=== PATIENT | male | born 1985 | race Caucasian/White ===

== ENCOUNTER 2020-12-14 06:06 | Inpatient (IN) ==
[2020-12-14] MEDS ORDERED: SODIUM CHLORIDE 0.9% 1000ML 1,000 ML IV STA (07:02)
[2020-12-14 07:28] LABS: Basophils # (auto) 0.02 K/uL (0-0.2); Basophils % (auto) 0.1 %; Eosinophils # (auto) 0.02 K/uL (0-0.5); Eosinophils % (auto) 0.1 %; Hematocrit (blood only) 44.7 % (42-52); Hemoglobin 16.1 g/dL (14.0-18.0); Immature Granulocytes # (auto) 0.05 K/uL (0.00-0.02); Immature Granulocytes % (auto) 0.3 %; Lymphocytes # (auto) 1.06 K/uL (1.2-3.4); Lymphocytes % (auto) 6.8 %; Mean Corpuscular Hemoglobin 30.9 pg (25-34); Mean Corpuscular Volume 85.8 fL (80-100); Monocytes # (auto) 1.73 K/uL (0.11-0.59); Monocytes % (auto) 11.1 %; Neutrophils # (auto) 12.66 K/uL (1.4-6.5); Neutrophils % (auto) 81.6 %; Platelet Count 211 K/uL (130-400); RDW Coefficient of Variation 13.4 % (11.5-14.5); RDW Standard Deviation 42.2 fL (36.4-46.3); Red Blood Count 5.21 M/uL (4.7-6.1); White Blood Count 15.54 K/uL (4.8-10.8)
--- NOTE | 2020-12-14 07:28 | Emergency Department Note ---
ED Visit Note I contributed to the care of this patient under the supervision of Dr. Mead . Resident Activity Tracking Resident Involvement: Resident Care Provided Care Provided: Adult ED
--- NOTE | 2020-12-14 07:44 | Emergency Department Note ---
History of Present Illness General Chief Complaint: Illness Stated Complaint: STOMACH PAIN,CHEST,THROAT PAIN Time Seen by Provider: 12/14/20 06:47 History of Present Illness Provider Complaint: abdominal pain Onset (ago): 2 hour(s) Pain Consistency: constant Location: diffuse Severity: moderate Maximum Pain Intensity: 6 Current Pain Intensity: 5 Quality: + aching Relieved By: + nothing Exacerbated By: + nothing Context: no foreign travel, no possible food poisoning, no recent antibiotic use and no recent surgery/procedure Associated Symptoms: + nausea, + vomiting, + chills and + constipation; no diarrhea, no fever, no dysuria, no hematemesis, no hematochezia, no melena, no hematuria, no anorexia, no syncope, no headache, no neck pain, no back pain, no chest pain and no breathing difficulty Home Medications Medication Instructions Recorded Confirmed Type ibuprofen 200 mg PO Q6H PRN 12/14/20 12/14/20 History psyllium [Metamucil] 1 packet PO TID 12/14/20 12/14/20 History Allergies Allergy/AdvReac Type Severity Reaction Status Date / Time Penicillins Allergy Hives Unverified 12/14/20 09:59 Past Med/Surg History Medical History (Updated 12/14/20 @ 15:36 by Toney Mead) Excessive consumption of ethanol Morbid obesity with BMI of 40.0-44.9, adult Transient hypertension Surgical History No pertinent past surgical history Family History Other Family history non-contributory Social History (Updated 12/14/20 @ 11:01 by Jj Gomes PA-C) Smoking Status: Heavy tobacco smoker Tobacco Type: Smokeless Tobacco (Dip or Chew) Second Hand Exposure: No; Do You Dip or Chew Tobacco: Yes; Tobacco Cessation Education Requested by Patient: No Hx Alcohol Use: Yes Alcohol type: hard liquor Hx Substance Use: No Preferred Language: Tamazight Communication Ability: Effective Hearing Ability: Normal 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 Required: No Beliefs That Will Affect Care: Yarsani marital status: marital status details: 2 children at home Current Living Situation: Spouse current occupational status: employed 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 [employer] How many Children do You have Comment: 2 Other Information That Helps Us Care for You: No Feels Safe at Home: Yes Safety Concerns: Feels Safe At This Time during the past year weight has: remained stable Dental Care, Regularly: Yes Assistive Devices: None Review of Systems A total of 10 systems reviewed and were otherwise negative Physical Exam Vital Signs: Vital Signs - 24 hr 12/14/20 06:10 12/14/20 08:07 12/14/20 09:11 Temperature 36.2 C L Temperature Source Temporal Artery Sc an Pulse Rate 109 H Pulse Rate [Finger ] 90 93 H Respiratory Rate 18 18 20 Respiratory Effort / Characteristics Non-Labored Sponta neous Respiratory Depth Normal Blood Pressure 163/101 H Blood Pressure [Ri ght Arm] 153/90 H 183/95 H Blood Pressure Aye n 121 Blood Pressure Aye n [Right Arm] 111 124 Pulse Oximetry 99 96 96 Oxygen Delivery Me thod Room Air Room Air Room Air Sepsis Recent Feve r Within 48 Hours No Sepsis New/Unexpla ined Change in Men dilip Status N/A Sepsis Action Take n by Nursing No Action Required 12/14/20 10:18 Temperature Temperature Source Pulse Rate Pulse Rate [Finger ] 94 H Respiratory Rate 22 Respiratory Effort / Characteristics Respiratory Depth Blood Pressure Blood Pressure [Ri ght Arm] 168/97 H Blood Pressure Aye n Blood Pressure Aye n [Right Arm] 120 Pulse Oximetry 97 Oxygen Delivery Me thod Room Air Sepsis Recent Feve r Within 48 Hours Sepsis New/Unexpla ined Change in Men dilip Status Sepsis Action Take n by Nursing Physical Exam: Physical Exam GENERAL: He is oriented to person, place, and time. He appears well-developed and well-nourished. He does not appear distressed. HENT: Exam performed. - Head: Normocephalic and atraumatic. - Right Ear: External ear normal. No mastoid tenderness. - Left Ear: External ear normal. No mastoid tenderness. - Mouth/Throat: The oropharynx is clear and moist. No trismus in the jaw. No dental abscesses or uvula swelling. No oropharyngeal exudate or tonsillar abscesses. EYES: Conjunctivae and EOM are normal. Pupils are equal, round, and reactive to light. Right eye exhibits no discharge. Left eye exhibits no discharge. No scleral icterus. NECK: Normal range of motion. Neck supple. No JVD present. No spinous process te nderness present. No carotid bruit present. No rigidity. No tracheal deviation and normal range of motion present. No Brudzinski's sign and no Kernig's sign noted. CV: Normal rate, regular rhythm, normal heart sounds and intact distal pulses. There is no peripheral edema. Palpable radial pulses bue. PULM/CHEST: Effort normal and breath sounds normal. No respiratory distress. No stridor. He has no wheezes. He has no rales. - Chest Wall: He exhibits no tenderness. ABD: The abdomen is soft. Bowel sounds are normal. He has no distension. No mass is present. There is no tenderness. There is no rebound, no guarding, no Ramirez's sign and no tenderness at McBurney's point. Rovsig negative. MUSC/SKEL: Normal range of motion. There is no peripheral edema, tenderness or deformity. LYMPH: No cervical adenopathy. NEURO: He is alert and oriented to person, place, and time. He has normal strength. No cranial nerve deficit or sensory deficit. Coordination and gait normal. GCS eye subscore is 4. GCS verbal subscore is 5. GCS motor subscore is 6. Cerebellar tests wnl. SKIN: Skin is warm and dry. He is not diaphoretic. PSYCH: He has a normal mood and affect. Behavior is normal. Judgment and thought content normal. Course Course 0647: The patient was evaluated in room C7. A complete history and physical exam was performed Cardiac monitoring: An order was placed for continuous cardiac monitoring. The monitor shows a rate of 110 with sinus tachycardia rhythm 0930: Vital signs stable. Patient's labs are leukocytosis 15.5 as well as an elevated [place]ase [place] 3959. Patient CT does show pancreatitis. Patient will be admitted to the [facility] hospitalist team Dr. Schilling has been notified. Administered Medications Thiamine HCl 100 mg/ Syringe 10 mls @ 2 mls/min IV QAM [facility] Stop: 01/13/21 13:14 Last Admin: 12/14/20 14:00 Dose: 2 mls/min Documented by: [id number] Folic Acid 1 mg/ Syringe 10 mls @ 5 mls/min IV QAM [facility] Stop: 01/13/21 13:14 Last Admin: 12/14/20 14:00 Dose: 5 mls/min Documented by: [id number] Dextrose/Sodium Chloride (D5w And Nss) 1,000 mls @ 150 mls/hr IV .Q6H40M [facility] Stop: 01/13/21 14:29 Last Admin: 12/14/20 14:43 Dose: 150 mls/hr Documented by: [id number] Insulin Aspart (Insulin Aspart 100 Units/Ml 3 Ml Pen) 0 units SC ACHS [facility] Stop: 01/13/21 13:14 Last Admin: 12/14/20 13:35 Dose: Not Given Documented by: [id number] Discontinued Medications Heparin Sodium (Porcine) (Heparin Sod 5,000 Unit/0.5 Ml Vial) 7,500 units SQ Q8 [facility] Stop: 01/13/21 13:59 Last Admin: 12/14/20 14:04 Dose: 7,500 units Documented by: [id number] Hydromorphone HCl (Hydromorphone Inj 0.5 Mg/0.5 Ml Syr) 0.5 mg IV NOW STA Stop: 12/14/20 11:36 Last Admin: 12/14/20 11:40 Dose: 0.5 mg Documented by: [id number] Sodium Chloride (Nss 1000ml) 1,000 mls @ 999 mls/hr IV .Q1H1M STA Stop: 12/14/20 08:02 Last Infusion: 12/14/20 08:08 Dose: 0 mls/hr Documented by: [id number] Admin: 12/14/20 07:13 Dose: 999 mls/hr Documented by: [id number] Lactated Ringer's (Lr) 1,000 mls @ 200 mls/hr IV .Q5H [facility] Stop: 01/13/21 08:29 Last Infusion: 12/14/20 14:35 Dose: 0 mls/hr Documented by: [id number] Admin: 12/14/20 13:32 Dose: 200 mls/hr Documented by: [id number] Infusion: 12/14/20 13:24 Dose: 0 mls/hr Documented by: [id number] Admin: 12/14/20 08:24 Dose: 200 mls/hr Documented by: [id number] Ioversol (Ioversol 100ml) 94 ml IV ONCE ONE Stop: 12/14/20 08:08 Last Admin: 12/14/20 08:07 Dose: 94 ml Documented by: [id number] Ondansetron HCl (Ondansetron Inj 2 Mg/Ml 2 Ml Vial) 4 mg IV NOW STA Stop: 12/14/20 11:37 Last Admin: 12/14/20 11:40 Dose: 4 mg Documented by: [id number] Medical Decision Making Laboratory Data Result diagrams: 12/14/20 07:13 12/14/20 13:07 Lab Results 12/14/20 12/14/20 12/14/20 Range/Units 07:13 07:13 07:13 WBC 15.54 H (4.8-10.8) K/uL RBC 5.21 (4.7-6.1) M/uL Hgb 16.1 (14.0-18.0) g/dL Hct 44.7 (42-52) % MCV 85.8 (80-100) fL MCH 30.9 (25-34) pg MCHC 36.0 (32-36) g/dL RDW Std Deviation 42.2 (36.4-46.3) fL RDW Coeff of Nolberto 13.4 (11.5-14.5) % Plt Count 211 (130-400) K/uL MPV 10.0 (7.4-10.4) fL Immature Gran % (Auto) 0.3 % Neut % (Auto) 81.6 % Lymph % (Auto) 6.8 % [place] % (Auto) 11.1 % Eos % (Auto) 0.1 % Baso % (Auto) 0.1 % Neut # (Auto) 12.66 H (1.4-6.5) K/uL Lymph # (Auto) 1.06 L (1.2-3.4) K/uL [place] # (Auto) 1.73 H (0.11-0.59) K/uL Eos # (Auto) 0.02 (0-0.5) K/uL Baso # (Auto) 0.02 (0-0.2) K/uL Immature Gran # (Auto) 0.05 H (0.00-0.02) K/uL Sodium 135 L (136-145) mmol/L Potassium 3.7 (3.5-5.1) mmol/L Chloride 102 (98-107) mmol/L Carbon Dioxide 26 (21-32) mmol/L Anion Gap 7.0 (3-11) BUN 5 L (7-18) mg/dl Creatinine 0.89 (0.6-1.4) mg/dl Est Cr Clr Drug Dosing 162.4 ml/min Est GFR ( Amer) 128.4 Est GFR (Non-Af Amer) 110.8 BUN/Creatinine Ratio 5.9 L (10-20) Glucose 162 H (70-99) mg/dl Calcium 9.5 (8.5-10.1) mg/dl Total Bilirubin 1.1 H (0.2-1) mg/dl AST 16 (15-37) U/L ALT 33 (12-78) U/L Alkaline Phosphatase 87 (45-117) U/L Total Protein 7.7 (6.4-8.2) gm/dl Albumin 3.1 L (3.4-5.0) gm/dl Globulin 4.6 H (2.5-4.0) gm/dl Albumin/Globulin Ratio 0.7 L (0.9-2) Triglycerides 849 H (0-150) mg/dl Cholesterol 374 H (0-200) mg/dl LDL Cholesterol, Calc mg/dl VLDL Cholesterol, Calc mg/dl HDL Cholesterol 42 mg/dl Cholesterol/HDL Ratio 9 Lipase 3959 H (73-393) U/L COVID-19 Eval Order SARS-CoV-2 (PCR) (Negative) Influenza Type A (PCR) (Neg) Influenza Type B (PCR) (Neg) RSV (RT-PCR) (Neg) 12/14/20 12/14/20 Range/Units 09:10 09:10 WBC (4.8-10.8) K/uL RBC (4.7-6.1) M/uL Hgb (14.0-18.0) g/dL Hct (42-52) % MCV (80-100) fL MCH (25-34) pg MCHC (32-36) g/dL RDW Std Deviation (36.4-46.3) fL RDW Coeff of Nolberto (11.5-14.5) % Plt Count (130-400) K/uL MPV (7.4-10.4) fL Immature Gran % (Auto) % Neut % (Auto) % Lymph % (Auto) % [place] % (Auto) % Eos % (Auto) % Baso % (Auto) % Neut # (Auto) (1.4-6.5) K/uL Lymph # (Auto) (1.2-3.4) K/uL [place] # (Auto) (0.11-0.59) K/uL Eos # (Auto) (0-0.5) K/uL Baso # (Auto) (0-0.2) K/uL Immature Gran # (Auto) (0.00-0.02) K/uL Sodium (136-145) mmol/L Potassium (3.5-5.1) mmol/L Chloride (98-107) mmol/L Carbon Dioxide (21-32) mmol/L Anion Gap (3-11) BUN (7-18) mg/dl Creatinine (0.6-1.4) mg/dl Est Cr Clr Drug Dosing ml/min Est GFR ( Amer) Est GFR (Non-Af Amer) BUN/Creatinine Ratio (10-20) Glucose (70-99) mg/dl Calcium (8.5-10.1) mg/dl Total Bilirubin (0.2-1) mg/dl AST (15-37) U/L ALT (12-78) U/L Alkaline Phosphatase (45-117) U/L Total Protein (6.4-8.2) gm/dl Albumin (3.4-5.0) gm/dl Globulin (2.5-4.0) gm/dl Albumin/Globulin Ratio (0.9-2) Triglycerides (0-150) mg/dl Cholesterol (0-200) mg/dl LDL Cholesterol, Calc mg/dl VLDL Cholesterol, Calc mg/dl HDL Cholesterol mg/dl Cholesterol/HDL Ratio Lipase (73-393) U/L COVID-19 Eval Order CovFluRsv at [facility] SARS-CoV-2 (PCR) NEGATIVE (Negative) Influenza Type A (PCR) Negative (Neg) Influenza Type B (PCR) Negative (Neg) RSV (RT-PCR) Negative (Neg) Imaging Data Radiologist's Impression: Abdomen/Pelvis CT 12/14/20 07:34 CT SCAN OF THE ABDOMEN AND PELVIS WITH IV CONTRAST CLINICAL HISTORY: Vomiting. Lower abdominal pain. Constipation. COMPARISON STUDY: No priors. TECHNIQUE: Following the IV administration of 94 cc of Optiray 320, CT scan of the abdomen and pelvis is performed from the lung bases to the proximal femora. Images are reviewed in the axial, sagittal, and coronal planes. IV contrast was administered without complication. A dose lowering technique was utilized adhering to the principles of ALARA. CT DOSE: 1680.54 mGy.cm FINDINGS: Lung bases: The heart is top normal in size and without pericardial effusion. The coronary arteries are densely calcified. The lung bases are clear noting dependent atelectasis. There is a small hiatal hernia. Liver: The contrast-enhanced liver is enlarged, measuring 21.2 cm in length. The liver demonstrates diffusely diminished attenuation consistent with severe he patic steatosis. Fatty sparing is seen adjacent to gallbladder fossa. There is no intrahepatic biliary ductal dilatation. The hepatic veins and portal veins are patent. Gallbladder: Unremarkable. Spleen: Normal in size and attenuation. Pancreas: The pancreatic body and tail appear edematous. There is significant peripancreatic stranding and fluid, and the appearance is consistent with severe acute pancreatitis. The gland enhances homogeneously. The the pancreatic duct is normal in caliber. No organized peripancreatic fluid collection is identified. The splenic vein is patent. Wall thickening of the adjacent stomach is likely reactive. Adrenal glands: Unremarkable. Kidneys: The contrast enhanced kidneys are normal in size and without hydronephrosis. The kidneys enhance symmetrically. A 2.7 cm calcification containing cyst or calyceal diverticulum in the right upper pole measures 2.7 cm. Abdominal vasculature: The abdominal aorta is normal in course and caliber. Bowel: There is no bowel obstruction. Moderate fecal retention is seen in the right colon. The appendix is well-visualized and normal. Peritoneum: No intraperitoneal free air is seen. There is peripancreatic fluid, with fluid seen tracking inferiorly within the left paracolic gutter. There is a fat-containing umbilical hernia. Lymphadenopathy: There are numerous mildly enlarged upper abdominal lymph nodes, which may be reactive or secondary to chronic liver disease. A portacaval node measures 1.6 cm short axis. Nodes in the nanda hepatis measure up to 1.2 cm in short axis. Pelvic viscera: The bladder, prostate, and seminal vesicles are normal as visualized. Skeletal structures: No lytic or blastic lesions are seen. There are bilateral pars defects at L5. Degenerative change and mild fragmentation is seen at the pubic symphysis. IMPRESSION: 1. Findings are consistent with severe acute pancreatitis. 2. The gland enhances homogeneously and no organized peripancreatic fluid collection is identified. 3. Hepatomegaly and severe hepatic steatosis. 4. The coronary arteries are densely calcified. This is advanced for age, and nonemergent cardiology follow-up is recommended. 5. Additional findings as above. ACT 112: Positive. There are findings on this exam that require communication between the performing entity and the patient following Patient Test Result Information Act ([place] Act 112) guidelines. Electronically signed by: Jj Kwan M.D. 12/14/2020 8:31 AM MDM Narrative Vital signs stable. Patient's labs are leukocytosis 15.5 as well as an [place] 3959. Patient CT does show pancreatitis. Patient will be admitted to the [facility] Hospitalist team Dr. Schilling has been notified. Impression & Plan Acute pancreatitis Discharge Plan Visit Data Chief Complaint: Illness Stated Complaint: STOMACH PAIN,CHEST,THROAT PAIN ED Provider: Toney Mead ED Midlevel Provider: Ron Lauren Discharge Problem: Acute pancreatitis Patient Disposition: Admitted As Inpatient Discharge Instructions Interventions: ED Discharge Assessment Last Done: 12/14/20 12:35 Discharge Problem: Acute pancreatitis Qualifiers: Pancreatitis type: unspecified pancreatitis type Acute pancreatitis complication: unspecified Qualified Code(s): K85.90 - Acute pancreatitis without necrosis or infection, unspecified
[2020-12-14 07:45] LABS: Albumin Level 3.1 gm/dl (3.4-5.0); BUN Creatinine Ratio 5.9 (10-20); Calcium 9.5 mg/dl (8.5-10.1); Creatinine Clr Calc Pharmacy 162.4 ml/min; Est GFR (African American) 128.4; Est GFR (Non-African American) 110.8; Potassium 3.7 mmol/L (3.5-5.1)
[2020-12-14 07:48] LABS: Albumin Globulin Ratio 0.7 (0.9-2); Bilirubin,Total 1.1 mg/dl (0.2-1); Globulin 4.6 gm/dl (2.5-4.0); Total Protein 7.7 gm/dl (6.4-8.2)
[2020-12-14] MEDS ORDERED: OPTIRAY 320 100ml IV ONE (08:07)
[2020-12-14] MEDS: LACTATED RINGER'S 1,000 ML IV SCH ×2 (08:24→13:32)
--- NOTE | 2020-12-14 08:32 | CT Scan Report ---
CT SCAN OF THE ABDOMEN AND PELVIS WITH IV CONTRAST CLINICAL HISTORY: Vomiting. Lower abdominal pain. Constipation. COMPARISON STUDY: No priors. TECHNIQUE: Following the IV administration of 94 cc of Optiray 320, CT scan of the abdomen and pelvi s is performed from the lung bases to the proximal femora. Images are reviewed in the axial, sagittal , and coronal planes. IV contrast was administered without complication. A dose lowering technique wa s utilized adhering to the principles of ALARA. CT DOSE: 1680.54 mGy.cm FINDINGS: Lung bases: The heart is top normal in size and without pericardial effusion. The coronary arteries a re densely calcified. The lung bases are clear noting dependent atelectasis. There is a small hiatal hernia. Liver: The contrast-enhanced liver is enlarged, measuring 21.2 cm in length. The liver demonstrates d iffusely diminished attenuation consistent with severe hepatic steatosis. Fatty sparing is seen adjac ent to gallbladder fossa. There is no intrahepatic biliary ductal dilatation. The hepatic veins and p ortal veins are patent. Gallbladder: Unremarkable. Spleen: Normal in size and attenuation. Pancreas: The pancreatic body and tail appear edematous. There is significant peripancreatic strandin g and fluid, and the appearance is consistent with severe acute pancreatitis. The gland enhances homo geneously. The the pancreatic duct is normal in caliber. No organized peripancreatic fluid collection is identified. The splenic vein is patent. Wall thickening of the adjacent stomach is likely reactiv e. Adrenal glands: Unremarkable. Kidneys: The contrast enhanced kidneys are normal in size and without hydronephrosis. The kidneys enh ance symmetrically. A 2.7 cm calcification containing cyst or calyceal diverticulum in the right uppe r pole measures 2.7 cm. Abdominal vasculature: The abdominal aorta is normal in course and caliber. Bowel: There is no bowel obstruction. Moderate fecal retention is seen in the right colon. The append ix is well-visualized and normal. Peritoneum: No intraperitoneal free air is seen. There is peripancreatic fluid, with fluid seen track ing inferiorly within the left paracolic gutter. There is a fat-containing umbilical hernia. Lymphadenopathy: There are numerous mildly enlarged upper abdominal lymph nodes, which may be reactiv e or secondary to chronic liver disease. A portacaval node measures 1.6 cm short axis. Nodes in the p parrish hepatis measure up to 1.2 cm in short axis. Pelvic viscera: The bladder, prostate, and seminal vesicles are normal as visualized. Skeletal structures: No lytic or blastic lesions are seen. There are bilateral pars defects at L5. De generative change and mild fragmentation is seen at the pubic symphysis. IMPRESSION: 1. Findings are consistent with severe acute pancreatitis. 2. The gland enhances homogeneously and no organized peripancreatic fluid collection is identified. 3. Hepatomegaly and severe hepatic steatosis. 4. The coronary arteries are densely calcified. This is advanced for age, and nonemergent cardiology follow-up is recommended. 5. Additional findings as above. ACT 112: Positive. There are findings on this exam that require communication between the performing entity and the patient following Patient Test Result Information Act ([place] Act 112) guidelines. Electronically signed by: Jj Kwan M.D. 12/14/2020 8:31 AM
--- NOTE | 2020-12-14 09:28 | History & Physical Report ---
Date of Service December 14, 2020 Assessment & Plan (1) Acute pancreatitis: Does not appear to be due to infection Received 1 L of normal saline in the emergency department followed by lactated Ringer's at 200 mL/h We will continue lactated Ringer's at 200 mL/h BMP every 6 hours Repeat CMP in the morning [facility] No indication for antibiotics at this time No hypercalcemia Follow hypertriglyceridemia (2) Hypertriglyceridemia: Unclear if this is causational to acute pancreatitis Follow serial lab Continue with fluid resuscitation (3) Hyperglycemia: May be secondary to acute pancreatitis No history of diabetes mellitus in the family We will begin sliding scale insulin with NovoLog. Check BSG ACHS Clear liquid diet at this time Check a hemoglobin A1c in the morning Patient with morbid obesity with a BMI of 41.5 kg/m (4) Hypertension: Hypertension may be a result of acute pain from pancreatitis We will treat with fluid resuscitation and Dilaudid 0.5 mg IV every 4 hours as needed for pain Patient states that he has had transient hypertension as an outpatient but he currently is not on any antihypertensives We will not begin any antihypertensives at this time but will follow pain control and SBP (5) Excessive consumption of ethanol: Discussed need for complete abstention Patient agreeable We will place patient on AWSS As needed lorazepam Thiamine daily Folic acid daily Multivitamin daily (6) Morbid obesity with BMI of 40.0-44.9, adult: Discussed need for weight loss Patient is working on that at home and is in a weight loss challenge at work Advised patient to discuss with family doctor for weight loss strategy (7) DVT prophylaxis: Heparin 7500 units SQ every 8 hours Ambulate as tolerated Please refer to Dr. Arcos's addendum for further corrections and additions. History of Present Illness Primary Care Provider: Robert Ordoñez MD Attending: Dr. 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 He has a past medical history including ethanol abuse, morbid obesity with a BMI of 41.5 kg/m, transient hypertension on no outpatient treatment, tobacco abuse. The patient states that he began having some abdominal pain 2 days ago. He repo rts that he does drink regularly and increase his alcohol consumption recently. He has never had a problem with withdrawal and has never had inpatient rehabilitation. He drove himself to the emergency department due to abdominal pain and was found to have acute pancreatitis by CT abdomen pelvis. He received 1 L of normal saline solution and then was started on 200 mL an hour of lactated Ringer's. He had one episode of vomiting 2 days ago. He had no food intake yesterday and has no nausea or vomiting. He has no shortness of breath other than with abdominal pain. He states that he does have difficulty taking a deep breath because of the pain. He has no recent diarrhea and has regular bowel movements that are formed. He has no hematemesis, hematochezia, melena, BRBPR. His blood pressure is elevated at 168/97 which may be secondary to pain. Patient does state that in the past he has been on antihypertensives but not regularly. He has no cardiac history other than this transient hypertension. He denies any family history of ACS or CAD. There is no history of diabetes or malignancy in his family as well. Patient does have elevated triglycerides and lipids. He is currently not being treated as an outpatient. Regarding constitutional symptoms, patient denies fever but did have chills and some sweats last night. He has no evidence of sepsis. He has no recent travel. He feels as though he may have had Covid in the past but was never tested. [facility] not [facility]. There is no one sick at home. The patient is and has 2 children aged 4 and 6. Until this admission, patient has been in his usual well state of health. Regarding the patient's weight, he states that he has had no recent weight loss or gain that was unintentional. He does acknowledge that ethanol intake contributes to his truncal obesity. He also states that he has made the decision to decrease his drinking and try and lose weight and is in fact involved in a weight loss challenge at work. The patient does not have a history of cigarette smoking abuse. He does however use smokeless tobacco and goes for approximately 2 cans/week. He has no other substance abuse or illicit drug use. Allergies Allergy/AdvReac Type Severity Reaction Status Date / Time Penicillins Allergy Hives Unverified 12/14/20 09:59 Home Medications Medication Instructions Recorded Confirmed Type ibuprofen 200 mg PO Q6H PRN 12/14/20 12/14/20 History psyllium [Metamucil] 1 packet PO TID 12/14/20 12/14/20 History Past Med/Surg History Medical History (Updated 12/14/20 @ 15:36 by Toney Mead) Excessive consumption of ethanol Morbid obesity with BMI of 40.0-44.9, adult Transient hypertension Surgical History No pertinent past surgical history Family History Other Family history non-contributory Social History (Updated 12/14/20 @ 11:01 by Jj Gomes PA-C) Smoking Status: Heavy tobacco smoker Tobacco Type: Smokeless Tobacco (Dip or Chew) Second Hand Exposure: No; Do You Dip or Chew Tobacco: Yes; Tobacco Cessation Education Requested by Patient: No Hx Alcohol Use: Yes Alcohol type: hard liquor Hx Substance Use: No Preferred Language: Mongolian Communication Ability: Effective Hearing Ability: Normal Career Guidance Counselor Required: No Beliefs That Will Affect Care: Buddhist marital status: marital status details: 2 children at home Current Living Situation: Spouse current occupational status: employed 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 [employer] How many Children do You have Comment: 2 Other Information That Helps Us Care for You: No Feels Safe at Home: Yes Safety Concerns: Feels Safe At This Time during the past year weight has: remained stable Dental Care, Regularly: Yes Assistive Devices: None Review of Systems Review of Systems: All systems reviewed & are unremarkable except as noted in HPI & below Physical Exam Physical Exam: GENERAL : No acute distress EYES: No icterus, gaze conjugate NOSE: No evidence of epistaxis MOUTH: No lesions or candidiasis NECK: Supple LUNGS: CTA B/L, no wheezes, rales or rhonchi HEART: Regular, rate controlled ABDOMEN: Soft, ND, BS Present. Abdomen protuberant. Tender to deep palpation in the mid epigastric region. EXTREMITIES: No LE edema, pedal pulses intact NEURO: A&OX3 Results & Data Results & Data ([facility]) Vital Signs (Past 12 Hours) Vital Signs Temp Pulse Pulse Resp BP BP Pulse Ox 12/14/20 09:11 93 H 20 183/95 H 96 12/14/20 08:07 90 18 153/90 H 96 12/14/20 06:10 36.2 C L 109 H 18 163/101 H 99 Laboratory Results 12/14/20 07:13 12/14/20 07:[address] SCAN OF THE ABDOMEN AND PELVIS WITH IV CONTRAST CLINICAL HISTORY: Vomiting. Lower abdominal pain. Constipation. COMPARISON STUDY: No priors. TECHNIQUE: Following the IV administration of 94 cc of Optiray 320, CT scan of the abdomen and pelvis is performed from the lung bases to the proximal femora. Images are reviewed in the axial, sagittal, and coronal planes. IV contrast was administered without complication. A dose lowering technique was utilized adhering to the principles of ALARA. CT DOSE: 1680.54 mGy.cm FINDINGS: Lung bases: The heart is top normal in size and without pericardial effusion. The coronary arteries are densely calcified. The lung bases are clear noting dependent atelectasis. There is a small hiatal hernia. Liver: The contrast-enhanced liver is enlarged, measuring 21.2 cm in length. The liver demonstrates diffusely diminished attenuation consistent with severe hepatic steatosis. Fatty sparing is seen adjacent to gallbladder fossa. There is no intrahepatic biliary ductal dilatation. The hepatic veins and portal veins are patent. Gallbladder: Unremarkable. Spleen: Normal in size and attenuation. Pancreas: The pancreatic body and tail appear edematous. There is significant peripancreatic stranding and fluid, and the appearance is consistent with severe acute pancreatitis. The gland enhances homogeneously. The the pancreatic duct is normal in caliber. No organized peripancreatic fluid collection is identified. The splenic vein is patent. Wall thickening of the adjacent stomach is likely reactive. Adrenal glands: Unremarkable. Kidneys: The contrast enhanced kidneys are normal in size and without hydronephrosis. The kidneys enhance symmetrically. A 2.7 cm calcification containing cyst or calyceal diverticulum in the right upper pole measures 2.7 cm. Abdominal vasculature: The abdominal aorta is normal in course and caliber. Bowel: There is no bowel obstruction. Moderate fecal retention is seen in the right colon. The appendix is well-visualized and normal. Peritoneum: No intraperitoneal free air is seen. There is peripancreatic fluid, with fluid seen tracking inferiorly within the left paracolic gutter. There is a fat-containing umbilical hernia. Lymphadenopathy: There are numerous mildly enlarged upper abdominal lymph nodes, which may be reactive or secondary to chronic liver disease. A portacaval node measures 1.6 cm short axis. Nodes in the nanda hepatis measure up to 1.2 cm in short axis. Pelvic viscera: The bladder, prostate, and seminal vesicles are normal as visualized. Skeletal structures: No lytic or blastic lesions are seen. There are bilateral pars defects at L5. Degenerative change and mild fragmentation is seen at the pubic symphysis. IMPRESSION: 1. Findings are consistent with severe acute pancreatitis. 2. The gland enhances homogeneously and no organized peripancreatic fluid collection is identified. 3. Hepatomegaly and severe hepatic steatosis. 4. The coronary arteries are densely calcified. This is advanced for age, and no nemergent cardiology follow-up is recommended. 5. Additional findings as above. ACT 112: Positive. There are findings on this exam that require communication between the performing entity and the patient following Patient Test Result Information Act ([place] Act 112) guidelines. Electronically signed by: Jj Kwan M.D. 12/14/2020 8:31 AM Medications Administered LR at 200 ml/hr after 1 L bolus at 999 ml/hr Code Status & VTE Plan Code Status Full resuscitation: Level I VTE Prophylaxis Plan VTE Prophylaxis will be ordered: Yes Supervising Physician Co-Signing Physician Notes I personally saw and examined the patient. I verified all garcia points and agree with MEREDITH Gomes with the following exceptions and/or additions: 35yo male with 2 days of abdominal pain, progressively getting worse. O/E A&Ox3, HS1+2, no murmurs, RRR, Chest CTAB, Abdo - epigastric pain without guarding or rebound tenderness Acute pancreatitis - secondary to alcohol (most likely) vs. hypertriglyceridemia. Switch IV fluids to D5NSS to allow use of insulin to manage hypertriglyceridemia Hypertriglyceridemia - Start statin and fibrate once triglycerides < 500 Alcohol use disorder - cessation discussed. Recommend outpatient rehabilitation. AWSS with lorazepam DVT prophylaxis - SCDs, given young age and mobility will discontinue chemical prophylaxis PG Care Time/CCT Total # of Minutes Spent Total Time Spent with Patient: Total time spent is greater than 50% in coordination of care (as documented) at patient's floor/unit and/or counseling patient: 60 minutes Coding Level of Care Code 12361 Initial Inpt Care Lvl 3 Diagnoses Acute pancreatitis K85.90 Hypertriglyceridemia E78.1 Hyperglycemia R73.9 Hypertension I10 Excessive consumption of ethanol F10.10 Morbid obesity with BMI of 40.0-44.9, adult E66.01; Z68.41 DVT prophylaxis Z29.9 Time Spent (min) 60
[2020-12-14 09:52] LABS: Chol HDL Ratio 9; Cholesterol 374 mg/dl (0-200); HDL Cholesterol 42 mg/dl; Triglycerides 849 mg/dl (0-150)
[2020-12-14 10:21] LABS: Influenza A virus by PCR Negative (Neg); Influenza B virus by PCR Negative (Neg); RSV by PCR Negative (Neg); SARS CoV2 RNA(COVID-19) InHosp NEGATIVE (Negative)
[2020-12-14] MEDS ORDERED: HYDROmorphone INJ 0.5 MG/0.5 ML SYR IV STA (11:35)
[2020-12-14] MEDS ORDERED: ONDANSETRON INJ 2 MG/ML 2 ML VIAL IV STA (11:36)
[2020-12-14] MEDS ORDERED: GLUCOSE 40% GEL 15 GM TUBE PO PRN (12:53)
[2020-12-14] MEDS ORDERED: GLUCOSE 10 TABS/TUBE PO PRN (12:53)
[2020-12-14] MEDS ORDERED: ONDANSETRON INJ 2 MG/ML 2 ML VIAL IV PRN (12:53)
[2020-12-14] MEDS ORDERED: GLUCAGON FOR INJ 1 MG VIAL SQ PRN (12:53)
[2020-12-14] MEDS ORDERED: DEXTROSE 50% 50 ML SYRINGE IV PRN (12:53)
[2020-12-14] MEDS ORDERED: CARBOHYDRATES FOR HYPOGLYCEMIA PO PRN (12:53)
[2020-12-14] MEDS ORDERED: HYDROmorphone INJ 0.5 MG/0.5 ML SYR IV PRN (12:53)
[2020-12-14] MEDS ORDERED: THIAMINE HCL 100 MG in SYRINGE 9 ML IV SCH (13:15)
[2020-12-14] MEDS: INSULIN ASPART 100 UNITS/ML 3 ML PEN SC SCH ×3 (13:35→20:30)
[2020-12-14 13:50] LABS: BUN Creatinine Ratio 5.3 (10-20); Calcium 9.6 mg/dl (8.5-10.1); Creatinine Clr Calc Pharmacy 156.6 ml/min; Est GFR (African American) 124.5; Est GFR (Non-African American) 107.4; Potassium 3.9 mmol/L (3.5-5.1)
[2020-12-14] MEDS: FOLIC ACID 1 MG in SYRINGE 9.8 ML IV SCH (14:00)
[2020-12-14] MEDS ORDERED: HEPARIN SOD 5,000 UNIT/0.5 ML VIAL SQ SCH (14:00)
[2020-12-14] MEDS: D5W AND NSS 1,000 ML IV SCH ×2 (14:43→20:57)
[2020-12-14] MEDS: LORazepam 1 MG TAB PO PRN (20:43)
[2020-12-15] MEDS: LORazepam 1 MG TAB PO PRN ×2 (00:06→06:06)
[2020-12-15] MEDS: D5W AND NSS 1,000 ML IV SCH ×4 (02:14→18:12)
[2020-12-15 08:24] LABS: Hematocrit (blood only) 40.1 % (42-52); Hemoglobin 13.8 g/dL (14.0-18.0); Mean Corpuscular Hemoglobin 30.4 pg (25-34); Mean Corpuscular Hgb Conc 34.4 g/dL (32-36); Mean Corpuscular Volume 88.3 fL (80-100); Mean Platelet Volume 10.4 fL (7.4-10.4); Platelet Count 180 K/uL (130-400); RDW Coefficient of Variation 14.1 % (11.5-14.5); Red Blood Count 4.54 M/uL (4.7-6.1); White Blood Count 14.73 K/uL (4.8-10.8)
[2020-12-15 08:45] LABS: Estimated Average Glucose 128 mg/dl; Hemoglobin A1C 6.1 % (4.5-5.6)
[2020-12-15 08:48] LABS: Albumin Level 2.4 gm/dl (3.4-5.0); BUN Creatinine Ratio 6.7 (10-20); Calcium 8.7 mg/dl (8.5-10.1); Creatinine Clr Calc Pharmacy 167.5 ml/min; Est GFR (African American) 130.2; Est GFR (Non-African American) 112.3; Potassium 3.6 mmol/L (3.5-5.1)
[2020-12-15 08:59] LABS: Albumin Globulin Ratio 0.6 (0.9-2); Bilirubin,Total 1.1 mg/dl (0.2-1); Total Protein 6.4 gm/dl (6.4-8.2)
[2020-12-15] MEDS: THIAMINE HCL 100 MG TAB PO SCH (09:13)
[2020-12-15] MEDS: MULTIVITAMIN CHEWABLE TAB PO SCH (09:13)
[2020-12-15] MEDS: FOLIC ACID 1 MG in SYRINGE 9.8 ML IV SCH (09:13)
[2020-12-15] MEDS: INSULIN ASPART 100 UNITS/ML 3 ML PEN SC SCH ×4 (09:19→21:45)
--- NOTE | 2020-12-15 10:44 | Electrocardiogram Report ---
Test Reason : Blood Pressure : / mmHG Vent. Rate : 128 BPM Atrial Rate : 128 BPM P-R Int : 154 ms QRS Dur : 100 ms QT Int : 298 ms P-R-T Axes : 040 045 026 degrees QTc Int : 435 ms Sinus tachycardia Incomplete right bundle branch block Poor R wave progression, consider anterior CT vs. lead placement vs. LVH Abnormal ECG No previous ECGs available Confirmed by Edison Cho ([id number]) on 12/15/2020 10:44:23 AM Referred By: REFERRED SELF Confirmed By:Ruddy Cho
--- NOTE | 2020-12-15 23:12 | Hospitalist Progress Note ---
Date of Service December 15, 2020 Assessment & Plan (1) Acute pancreatitis: Likely secondary to alcohol intake. [facility] No indication for antibiotics at this time No hypercalcemia Follow hypertriglyceridemia Though imaging appears to show severe pancreatitis, his scores are not correlati ng with severe pancreatitis. Lipase is trending down. will continue IVF and clear liquid diet (2) Hypertriglyceridemia: Unclear if this is causational to acute pancreatitis improving. Follow serial lab Continue with fluid resuscitation (3) Hyperglycemia: May be secondary to acute pancreatitis No history of diabetes mellitus in the family We will begin sliding scale insulin with NovoLog. Check BSG ACHS Clear liquid diet at this time hemoglobin A1c in the mornin.1 Patient with morbid obesity with a BMI of 41.5 kg/m (4) Hypertension: Hypertension may be a result of acute pain from pancreatitis We will treat with fluid resuscitation and Dilaudid 0.5 mg IV every 4 hours as needed for pain Patient states that he has had transient hypertension as an outpatient but he currently is not on any antihypertensives We will not begin any antihypertensives at this time but will follow pain control and SBP (5) Excessive consumption of ethanol: Discussed need for complete abstention Patient agreeable We will place patient on AWSS As needed lorazepam Thiamine daily Folic acid daily Multivitamin daily (6) Morbid obesity with BMI of 40.0-44.9, adult: Discussed need for weight loss Patient is working on that at home and is in a weight loss challenge at work Advised patient to discuss with family doctor for weight loss strategy (7) DVT prophylaxis: Heparin 7500 units SQ every 8 hours Ambulate as tolerated Admission and Anticipated Discharge Date Admission Date: December 14, 2020 Subjective Patient denies any tremors, nausea, vomiting, diarrhea, or hallucinations. Patient reports he has never went through alcohol withdrawal. Review of Systems Review of Systems: All systems reviewed & are unremarkable except as noted in HPI & below Physical Exam Constitutional: WD/WN, vitals as above Eyes: PERRL, conjunctivae normal, anicteric sclerae Neck: trachea midline, no thyromegaly Respiratory: normal respiratory effort, lungs clear to auscultation Cardiovascular: RRR, no murmur, no edema Gastrointestinal (Abdomen): normal bowel sounds, soft, nontender, no hepatosplenomegaly Neurologic: PERRL, EOMI, accommodation nl, no face palsy, no dysarthria Psychiatric: A+Ox3, euthymic affect Lymphatic: no cervical or axillary lymphadenopathy Results & Data Results & Data ([facility]) Vital Signs (Past 12 Hours) Vital Signs Temp Pulse Pulse Resp BP Pulse Ox 12/15/20 19:59 37.2 C 109 H 18 143/90 H 93 12/15/20 16:08 37.4 C 109 H 20 153/95 H 96 12/15/20 15:37 37.0 C 109 H 17 166/96 H 95 12/15/20 12:28 37.8 C H 12/15/20 12:14 38 C H 108 H 20 153/99 H 95 PG Care Time/CCT Total # of Minutes Spent Total Time Spent with Patient: Total time spent is greater than 50% in coordination of care (as documented) at patient's floor/unit and/or counseling patient: Coding Level of Care Code 45229 Subseq Hosp Care Lvl 3 Diagnoses Acute pancreatitis K85.90 Hypertriglyceridemia E78.1 Hyperglycemia R73.9 Hypertension I10 Excessive consumption of ethanol F10.10 Morbid obesity with BMI of 40.0-44.9, adult E66.01; Z68.41 DVT prophylaxis Z29.9 Time Spent (min) 35
[2020-12-16] MEDS: D5W AND NSS 1,000 ML IV SCH ×5 (04:43→19:46)
[2020-12-16 07:19] LABS: Hematocrit (blood only) 36.7 % (42-52); Hemoglobin 12.4 g/dL (14.0-18.0); Mean Corpuscular Hemoglobin 30.3 pg (25-34); Mean Corpuscular Hgb Conc 33.8 g/dL (32-36); Mean Corpuscular Volume 89.7 fL (80-100); Mean Platelet Volume 9.9 fL (7.4-10.4); Platelet Count 177 K/uL (130-400); RDW Coefficient of Variation 14.2 % (11.5-14.5); RDW Standard Deviation 46.9 fL (36.4-46.3); Red Blood Count 4.09 M/uL (4.7-6.1); White Blood Count 13.06 K/uL (4.8-10.8)
[2020-12-16 07:45] LABS: Albumin Level 2.2 gm/dl (3.4-5.0); BUN Creatinine Ratio 9.2 (10-20); Calcium 8.5 mg/dl (8.5-10.1); Creatinine Clr Calc Pharmacy 192.1 ml/min; Est GFR (African American) 137.7; Est GFR (Non-African American) 118.8; Potassium 3.9 mmol/L (3.5-5.1)
[2020-12-16 07:48] LABS: Albumin Globulin Ratio 0.5 (0.9-2); Bilirubin,Total 0.9 mg/dl (0.2-1); Globulin 4.4 gm/dl (2.5-4.0); Total Protein 6.6 gm/dl (6.4-8.2)
[2020-12-16] MEDS: THIAMINE HCL 100 MG TAB PO SCH (07:49)
[2020-12-16] MEDS: MULTIVITAMIN CHEWABLE TAB PO SCH (07:50)
[2020-12-16] MEDS: FOLIC ACID 1 MG in SYRINGE 9.8 ML IV SCH (07:50)
[2020-12-16] MEDS: INSULIN ASPART 100 UNITS/ML 3 ML PEN SC SCH ×4 (09:15→21:13)
--- NOTE | 2020-12-16 15:15 | Hospitalist Progress Note ---
Date of Service December 16, 2020 Assessment & Plan (1) Acute pancreatitis: Likely secondary to alcohol intake. He reports drinking about "3 - 4" drinks most days, but these are vodka or rum and he doesn't measure. Some days he drinks "a lot" more than that. He will only say that "a lot" is more than 10 drinks. - Continue IV fluids - Advance diet - Pain is under control - Lipase improving. (2) Hypertriglyceridemia: Likely contributing as cause of his acute pancreatitis, though he does have labs as high as 2000 in 2019. - Improving with IV fluids. - Continue with fluid resuscitation - Will need to work with PCP or endocrinology regarding improving this. (3) Hyperglycemia: May be secondary to acute pancreatitis. No history of diabetes mellitus in the family. - Blood sugars all ~140. - A1c is 6.1%, making him pre-diabetic. - Will stop sliding scale insulin - Encourage lifestyle modification. (4) Hypertension: Patient states that he has had transient hypertension as an outpatient but he currently is not on any antihypertensives. - We will not begin any antihypertensives at this time but will follow pain control and SBP - BP presently 140/90. (5) Excessive consumption of ethanol: Discussed need for complete abstention. Patient agreeable. - Continue thiamine, folic acid daily (6) Morbid obesity with BMI of 40.0-44.9, adult: Discussed need for weight loss. Patient is working on that at home and is in a weight loss challenge at work. - Advised patient to discuss with family doctor for weight loss strategy (7) DVT prophylaxis: SCDs - Low DVT risk per admission calculator Admission and Anticipated Discharge Date Admission Date: December 14, 2020 Subjective Doing better. Abdomen is mostly "sore" now in the LUQ area. Reports no fevers/chills, chest pain, shortness of breath, nausea, or vomiting. Physical Exam Constitutional: WD/WN, vitals as above Eyes: EOM intact bilaterally; no conjunctival abnormality ENMT: external ear and nose normal, oropharynx normal Neck: trachea midline, no thyromegaly normal visual inspection Respiratory: normal respiratory effort, lungs clear to auscultation no respiratory distress Cardiovascular: RRR, no murmur, no edema Gastrointestinal (Abdomen): Inspection/Auscultation: abdomen normal to inspection; abdomen not distended Musculoskeletal: no cyanosis or clubbing, extremities motor strength 5/5 Skin: no rashes, warm and dry Neurologic: moves all extremities and awake Psychiatric: Orientation: alert, oriented to person and cooperative Results & Data Results & Data ([facility]) Vital Signs (Past 12 Hours) Vital Signs Temp Pulse Resp BP Pulse Ox 12/16/20 07:00 37.0 C 91 H 16 147/83 H 96 12/16/20 04:40 36.9 C 87 18 143/85 H 96 PG Care Time/CCT Total # of Minutes Spent Total Time Spent with Patient: Total time spent is greater than 50% in coordination of care (as documented) at patient's floor/unit and/or counseling patient: Coding Level of Care Code 98177 Subseq Hosp Care Lvl 3 Diagnoses Acute pancreatitis K85.90 Hypertriglyceridemia E78.1 Hyperglycemia R73.9 Hypertension I10 Excessive consumption of ethanol F10.10 Morbid obesity with BMI of 40.0-44.9, adult E66.01; Z68.41 DVT prophylaxis Z29.9
[2020-12-17] MEDS: D5W AND NSS 1,000 ML IV SCH ×3 (00:25→11:10)
[2020-12-17 06:15] LABS: Hematocrit (blood only) 35.9 % (42-52); Mean Corpuscular Hemoglobin 30.1 pg (25-34); Mean Corpuscular Hgb Conc 33.4 g/dL (32-36); Mean Platelet Volume 9.8 fL (7.4-10.4); Platelet Count 218 K/uL (130-400); RDW Coefficient of Variation 14.3 % (11.5-14.5); RDW Standard Deviation 47.5 fL (36.4-46.3); Red Blood Count 3.99 M/uL (4.7-6.1); White Blood Count 11.42 K/uL (4.8-10.8)
[2020-12-17 06:50] LABS: Albumin Level 2.1 gm/dl (3.4-5.0); BUN Creatinine Ratio 8.8 (10-20); Calcium 8.4 mg/dl (8.5-10.1); Creatinine Clr Calc Pharmacy 189.5 ml/min; Est GFR (Non-African American) 118.2; Potassium 3.5 mmol/L (3.5-5.1)
[2020-12-17 06:54] LABS: Albumin Globulin Ratio 0.5 (0.9-2); Bilirubin,Total 0.6 mg/dl (0.2-1); Globulin 4.6 gm/dl (2.5-4.0); Total Protein 6.7 gm/dl (6.4-8.2)
[2020-12-17] MEDS: INSULIN ASPART 100 UNITS/ML 3 ML PEN SC SCH ×2 (09:06→13:09)
[2020-12-17] MEDS: FOLIC ACID 1 MG in SYRINGE 9.8 ML IV SCH (09:08)
[2020-12-17] MEDS: MULTIVITAMIN CHEWABLE TAB PO SCH (09:08)
[2020-12-17] MEDS: THIAMINE HCL 100 MG TAB PO SCH (09:09)
--- NOTE | 2020-12-17 18:43 | Discharge Summary ---
Date of Service December 17, 2020 Admission HPI Per Admitting Provider Attending: Dr. 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. He has a past medical history including ethanol abuse, morbid obesity with a BMI of 41.5 kg/m, transient hypertension on no outpatient treatment, tobacco abuse. The patient states that he began having some abdominal pain 2 days ago. He reports that he does drink regularly and increase his alcohol consumption recently. He has never had a problem with withdrawal and has never had inpatient rehabilitation. He drove himself to the emergency department due to abdominal pain and was found to have acute pancreatitis by CT abdomen pelvis. He received 1 L of normal saline solution and then was started on 200 mL an hour of lactated Ringer's. He had one episode of vomiting 2 days ago. He had no food intake yesterday and has no nausea or vomiting. He has no shortness of breath other than with abdominal pain. He states that he does have difficulty taking a deep breath because of the pain. He has no recent diarrhea and has regular bowel movements that are formed. He has no hematemesis, hematochezia, melena, BRBPR. His blood pressure is elevated at 168/97 which may be secondary to pain. Patient does state that in the past he has been on antihypertensives but not regularly. He has no cardiac history other than this transient hypertension. He denies any family history of ACS or CAD. There is no history of diabetes or malignancy in his family as well. Patient does have elevated triglycerides and lipids. He is currently not being treated as an outpatient. Regarding constitutional symptoms, patient denies fever but did have chills and some sweats last night. He has no evidence of sepsis. He has no recent travel. He feels as though he may have had Covid in the past but was never tested. He has not recently been tested at the [place] [facility]. There is no one sick at home. The patient is and has 2 children aged 4 and 6. Until this admission, patient has been in his usual well state of health. Regarding the patient's weight, he states that he has had no recent weight loss or gain that was unintentional. He does acknowledge that ethanol intake contributes to his truncal obesity. He also states that he has made the decision to decrease his drinking and try and lose weight and is in fact involved in a weight loss challenge at work. The patient does not have a history of cigarette smoking abuse. He does however use smokeless tobacco and goes for approximately 2 cans/week. He has no other substance abuse or illicit drug use. Principal Diagnosis Alcoholic and possibly hypertriglyceridemia pancreatitis Discharge Exam Constitutional WD/WN, vitals as above Eyes EOM intact bilaterally; no conjunctival abnormality ENMT external ear and nose normal, oropharynx normal Neck trachea midline, no thyromegaly normal visual inspection Respiratory normal respiratory effort, lungs clear to auscultation no respiratory distress Cardiovascular RRR, no murmur, no edema Gastrointestinal (Abdomen) Inspection/Auscultation: abdomen normal to inspection; abdomen not distended Musculoskeletal no cyanosis or clubbing, extremities motor strength 5/5 Skin no rashes, warm and dry Neurologic moves all extremities and awake Psychiatric Orientation: alert, oriented to person and cooperative Discharge Data Allergies Allergy/AdvReac Type Severity Reaction Status Date / Time Penicillins Allergy Hives Unverified 12/14/20 09:59 Consultations 12/14/20 09:29 ED Decision to Admit Stat Ordered Studies 12/14/20 07:34 CT abd pelvis IV con only Stat Hospital Course (1) Acute pancreatitis: Likely secondary to alcohol intake. He reports drinking about "3 - 4" drinks most days, but these are vodka or rum and he doesn't measure. Some days he drinks "a lot" more than that. He will only say that "a lot" is more than 10 drinks. - Continued IV fluids - Advanced diet -> By 12/17, he was pain free and tolerated low fat diet. - Discharged with advise to abstain from alcohol completely for 3 months, and then only limit to 2 drinks/day at most. Follow up with PCP regarding high triglycerides. (2) Hypertriglyceridemia: Possibly contributing as cause of his acute pancreatitis. He does have labs as high as 2000 in 2019, though not that high this time. - Improved with IV fluids. - Down to 250 by discharge. - Will need to work with PCP or endocrinology regarding improving this. (3) Hyperglycemia: May be secondary to acute pancreatitis. No history of diabetes mellitus in the family. - Blood sugars all ~140. - A1c is 6.1%, making him pre-diabetic. - Will stop sliding scale insulin - Encouraged lifestyle modification. (4) Hypertension: Patient states that he has had transient hypertension as an outpatient but he currently is not on any antihypertensives. - We will not begin any anti-hypertensives at this time but will follow pain control and SBP - BP up to 150/90. - He will likely need to start a hypertensive medication with his PCP. (5) Excessive consumption of ethanol: Discussed need for complete abstention. Patient agreeable. - Continue thiamine, folic acid daily (6) Morbid obesity with BMI of 40.0-44.9, adult: Discussed need for weight loss. Patient is working on that at home and is in a weight loss challenge at work. - Advised patient to discuss with family doctor for weight loss strategy (7) DVT prophylaxis: SCDs - Low DVT risk per admission calculator Total Time Total Time Spent Total Time Spent (In Minutes): 35 Discharge Plan Discharge Items Patient Disposition: Home - Self-Care Reason For Visit: ACUTE PANCREATITIS Discharge Diagnosis: Alcoholic and high triglyceride pancreatitis Activity: Resume your previous activity Non-emergency contact: Primary Care Provider Call non-emergency contact if: your pain is not controlled Follow-up/Referrals: Robert Ordoñez MD [Primary Care Provider] - Diet: Low Fat Addtl Attending Provider Instructions: Mr. Figueredo, You were admitted to the hospital with abdominal pain caused by inflammation of the pancreas (called pancreatitis). This is most commonly caused by alcohol consumption, and your alcohol intake was higher than our recommendations. However, you also have high triglycerides which can cause pancreatitis as well. Please abstain from all alcohol for at least 3 months. If/when you start drinking again, please limit it to 2 drinks per day at most. One "drink" is defined as a 12 oz beer (usual ABV of 4.5% - 5.5%; notably NOT a malt beer or higher ABV beer), 4.5 oz of wine (usual ABV 10% - 13%), or a 1.5 oz shot of liquor. You should not consume more than 14 drinks per week. For your triglycerides, please see Dr. Ordoñez to determine if you should be on triglyceride-lowering medication. Your triglycerides have varied significantly. Here, they are 250 on discharge, but I have a record of them being as high as 2000 which could cause pancreatitis. For the next week, please eat lower fat foods. Avoid red meats, cheese, fried foods, and other high fat foods and gradually re-introduce them into your diet over the coming weeks. Please follow up with your PCP to determine the next steps and also to discuss your anxiety & stress which you reported were some of the contributors to your drinking. Pending Studies at Discharge: No Stand-Alone Forms: My [facility], Smoking Cessation Medications and DC Order Prescriptions: New thiamine HCl (vitamin B1) [Vitamin B-1] 100 mg Tablet 100 mg PO QAM Qty: 30 RF: 0 folic acid 1 mg tablet 1,000 mcg PO DAILY Qty: 30 RF: 0 Continued ibuprofen 200 mg Capsule 200 mg PO Q6H PRN (Reason: Pain) RF: 0 psyllium Packet 1 packet PO TID RF: 0 Discharge Orders: Discharge Order (Routine); Ordered 12/17/20 Ordered By: Roman Dickerson/Other Patient Handouts: Prediabetes, Exercise to Manage Your Blood Sugar, 5 Steps for Eating Healthier, A1C Admission Data Admit Date/Time: 12/14/20 10:51 Attending Provider: Roman Peña Admit Provider: Jefferson Arcos Primary Care Provider: Robert Ordoñez Other Providers: Roman Peña Other Interventions: Discharge Summary Assessment (RN) Last Done: 12/17/20 14:38 Coding Level of Care Code D/C Day Management >30 mins Diagnoses Acute pancreatitis K85.90 Hypertriglyceridemia E78.1 Hyperglycemia R73.9 Hypertension I10 Excessive consumption of ethanol F10.10 Morbid obesity with BMI of 40.0-44.9, adult E66.01; Z68.41 DVT prophylaxis Z29.9
== END 2020-12-17 15:29 | disposition home or self-care (01) | DRG 439 ==
LOC: ED 06:06 → SUATTDRO 10:51 → 2W 10:51 → 3N 22:04